=== PATIENT | male | born 1985 | race African-American/Black ===

== ENCOUNTER 2021-04-29 05:16 | Emergency (ER) | payer OTHER ==
[2021-04-29 05:44] VITALS: BMI 21.6
[2021-04-29 11:32] VITALS: BP 136/79; PULSE 88; TEMP 97.5
== END 2021-04-29 11:32 | disposition short-term general hospital (02) ==
LOC: JER 05:16
DX: S01.21XA Laceration without foreign body of nose, initial encounter (principal)
CPT/HCPCS: 70450-TC; 99284-25